=== PATIENT | female | born 1960 | race Caucasian/White ===

== ENCOUNTER 2021-09-20 07:29 | Day surgery (SDC) | payer OTHER ==
[2021-09-17 09:24] LABS: Basophils % 0.7 % (0-1.3); Hematocrit 38.7 % (36.0-45.0); MPV 8.2 fL (7.6-11.3); RBC Red Blood Cell Count 4.43 M/uL (3.86-4.86)
--- NOTE | 2021-09-17 09:35 | RAD REPORT ---
EXAM DESCRIPTION: RAD - Chest Pa And Lat (2 Views) - 09/17/2021 9:10 am CLINICAL HISTORY: Pre Op heart Cath COMPARISON: None TECHNIQUE: Frontal and lateral views of the chest were obtained. FINDINGS: The lungs are clear of a suspicious mass or consolidation. Punctate nodular focus seen in the mid left lung field lower right lung field. These are probably vessels seen on and. Repeat chest film in 6 months could be performed to re-evaluate these small foci. No failure or volume overload. Heart size is normal and central vasculature is within normal limits. No pleural effusion or pneumo thorax seen. No acute bony finding noted. Diaphragm is flattened. Increased retrosternal space evid ent. IMPRESSION: COPD findings are present with no acute cardiopulmonary process. Two punctate nodular foci, 4 mm or less in size, in the lung orta are probably vessels seen on and rather than true lung nodules. Repeat two-view chest imaging in 6 months could be performed to monitor these findings.
[2021-09-17 09:39] LABS: Potassium 4.2 mmol/L (3.5-5.1)
[2021-09-17 09:40] LABS: Protime INR 0.94
[~2021-09-20 07:29] MED LIST: HEPA 1000U/500MLS 0 UNIT/0 ML BAG IV ONE; HEPA 1000U/500MLS 1,000 UNIT/500 ML BAG IV ONE; LIDOCAINE 1% 20 ML MDV ONE
[2021-09-20] MEDS ORDERED: NA CHLORIDE 0.9% 500 ML ONE (08:03)
[2021-09-20] MEDS ORDERED: FENTANYL CITR 100 MCG/2 ML ONE (08:43)
[2021-09-20] MEDS ORDERED: MIDAZOLAM HCL 2 MG/2 ML INJ ONE ×3 (08:43→09:06)
[2021-09-20] MEDS ORDERED: ATROPINE SULF 1 MG/10 ML SYR IV ONE (08:44)
[2021-09-20] MEDS ORDERED: NITROGLYCERIN 100 MCG/ML SYR (for cath lab use only) IV ONE (08:44)
[2021-09-20] MEDS ORDERED: NA CHLORIDE 0.9% 0 ML ONE (08:44)
[2021-09-20] MEDS ORDERED: NITROGLYCERIN/D5W 25 MG/250 ML BTL IV ONE (08:44)
[2021-09-20] MEDS ORDERED: ONDANSETRON 4 MG/2 ML VIAL ONE (08:54)
[2021-09-20] MEDS ORDERED: FLUMAZENIL 0.1 MG/ML (5 mL VIAL) IV ONE (09:06)
--- NOTE | 2021-09-20 09:16 | OP ---
Surgeon: Hussein Kaplan MD Bore Mill Operator: Ms. Brynn Lawler. Procedure Performed: Admitted as an outpatient today on 09/20/2021 to the laborer operator as an outpatient. She underwent left heart catheterization and selective coronary arteriogram. Indication: Unstable angina. Procedure In Detail: Ms. Oseguera is 60, brought to the laborer operator today as an outpatient, prepped and draped in routine sterile fashion. Given Versed 4 mg and fentanyl for sedation. A 6-Romanian sheath introduced in the right common femoral artery successfully using the Seldinger technique. Angiograph y there was normal. Angio-Seal was used to close the case. Eveline catheter left and right were use d to cannulate the left main and right main respectively. She was found to have no perfectly normal coronaries. The left main was normal. Circumflex was normal. RCA was normal. She was codominant. Her LAD was normal without any plaquing. There were no complications. Blood Loss: 5 mL. Postoperative Diagnosis: Chest pain, normal coronaries. Anesthesia: Total conscious sedation was 30 minutes. Plan: Plan is for medical therapy. The patient will be in the hospital for 2 hours of bedrest after which she will go home and I will see her in the office in the next 2 weeks. INNA/LUIS Voice ID: [id number] Report ID: [id number]
[2021-09-20 14:06] VITALS: BP 115/75; TEMP 97.9; O2SAT 99
== END 2021-09-20 11:22 | disposition home or self-care (01) ==
LOC: CCL 07:29
DX: R07.9 Chest pain, unspecified (principal); I10 Essential (primary) hypertension; E78.5 Hyperlipidemia, unspecified; Z88.6 Allergy status to analgesic agent; Z88.8 Allergy status to other drugs, medicaments and biological substances; Z82.49 Family history of ischemic heart disease and other diseases of the circulatory system
CPT/HCPCS: 93005; 85025; 80048; 36415; 85610; 85730; 71046; 93454; C1893; C1760; J2250 ×2; J7040; J1644; J0583; J2405; J3010

== ENCOUNTER 2025-02-02 17:45 | Emergency (ER) | payer OTHER ==
[2025-02-02] MEDS ORDERED: LABETALOL 20 MG/4ML SYRINGE IV ONE (18:43)
--- NOTE | 2025-02-02 19:07 | RAD REPORT ---
Procedure: Chest Single View HISTORY: Chest pain COMPARISON: 2020 FINDINGS: The lungs appear clear of acute infiltrate. No significant pleural effusion noted. The heart is normal size. IMPRESSION: No acute abnormality is displayed.
[2025-02-02 19:21] LABS: Absolute Basophils 0.1 K/uL (0-0.5); Absolute Lymphocytes (CBC) 1.5 K/uL (0.7-4.9); Absolute Monocytes 0.5 K/uL (0.1-1.3); Absolute Neutrophil 6.1 K/uL (1.8-8.0); Basophils % 0.6 % (0-1.3); Eosinophils % 0.5 % (0-4.4); Hematocrit 40.5 % (36.0-45.0); Hemoglobin 13.8 g/dL (12.0-15.0); Lymphocytes % 18.4 % (15.3-44.8); MCH 30.1 pg (27.0-35.0); MCHC 34.1 g/dL (32.0-36.0); MCV 88.2 fL (80-100); MPV 8.7 fL (7.6-11.3); Monocytes % 6.5 % (3.3-12.3); Nucleated Red Blood Cells % 0.1 % (0-0); Platelets 319 thou/uL (152-406); RBC Red Blood Cell Count 4.59 M/uL (3.86-4.86); Red Cell Distribution Width 12.4 % (12.1-15.2)
[2025-02-02 19:31] LABS: PT Prothrombin Time 11.7 SECONDS (10-13.0); Protime INR 1.03
[2025-02-02 19:39] LABS: ALT/SGPT 19 U/L (13-56); AST/SGOT 16 U/L (15-37); Albumin 3.9 g/dL (3.4-5.0); Alkaline Phosphatase 34 U/L (45-117); Anion Gap 8.8 mEq/L (5.0-15.0); BUN Blood Urea Nitrogen 11 mg/dL (7-18); Bicarbonate 27 mEq/L (21-32); Bilirubin Total 0.3 mg/dL (0.2-1.0); Globulin 3.8 g/dL (2.3-3.5); Glomerular Filtration Rate 82 ml/min (=/>90); Glucose Level 107 mg/dL (74-106); Lipase 51 U/L (13-75); Magnesium 2.4 mg/dL (1.6-2.4); NT PRO-BNP 96 pg/mL (<125); Potassium 3.8 mEq/L (3.5-5.1); Protein, Total 7.7 g/dL (6.4-8.2); Sodium Level 138 mEq/L (136-145)
[2025-02-02 19:40] LABS: Bilirubin Direct < 0.2 mg/dL (0-0.2); Bilirubin Indirect, Calculated 0.1 mg/dL (0.2-0.8); Troponin High Sensitivity < 3.0 pg/mL (<58.9)
--- NOTE | 2025-02-02 20:15 | RAD REPORT ---
EXAM: CTA of the chest, abdomen and pelvis HISTORY: Chest and abdominal pain. Back pain COMPARISON: 2023 TECHNIQUE: Multiple contiguous axial images were obtained a CTA of the chest and abdomen with contras t per aortic dissection protocol. Sagittal and coronal 3-D MIP reformats were performed. 100 cc Isovue-370 administered intravenously.Automated exposure control, adjustment of the mA and kV accordi ng to the patient size, and iterative reconstruction. Unless otherwise specified, incidental findings do not require dedicated imaging follow-up. FINDINGS: An aortic dissection not seen. No aortic aneurysm. No significant plaque. Celiac, SMA and HERNANDEZ do not demonstrate a significant abnormality. Renal arteries do not demonstrate a significant abnormality. Lungs are clear Liver, spleen, pancreas, adrenals, kidneys and bladder do not demonstrate a significant abnormality No evidence of diverticulitis. Hysterectomy. No adnexal mass. Small right inguinal hernia IMPRESSION: No evidence of an aortic dissection
--- NOTE | 2025-02-02 20:28 | ER ---
Nurse's Notes [facility] Name: Ana Maria Oseguera Age: 64 yrs Sex: Female : 1960 Arrival Date: 02/02/2025 Time: 17:45 Bed 15 Private MD: Diagnosis: Labile hypertension;Chest pain, unspecified Presentation: 02/02 17:56 Chief complaint: Patient states: UPPER LEFT ABD PAIN THAT RADIATES TO BACK. STATES HAS db HX OF LABILE HYPERTENSION. STATES HX OF CARDIAC CATH. STATES DOES NOT TAKE DAILY HTN MEDICATIONS. Coronavirus screen: Client denies travel out of the [place] in the last 14 days. At this time, the client does not indicate any symptoms associated with coronavirus-19. Ebola Screen: Patient negative for fever greater than or equal to 101.5 degrees Fahrenheit, and additional compatible Ebola Virus Disease symptoms Patient denies exposure to infectious person. Patient denies travel to an Ebola-affected area in the 21 days before illness onset. No symptoms or risks identified at this time. Initial Sepsis Screen: Does the patient meet any 2 criteria? No. Patient's initial sepsis screen is negative. Does the patient have a suspected source of infection? No. Patient's initial sepsis screen is negative. Risk Assessment: Do you want to hurt yourself or someone else? Patient reports no desire to harm self or others. Onset of symptoms was February 02, 2025. 17:56 Method Of Arrival: Ambulatory db 17:56 Acuity: VERA 2 db Triage Assessment: 17:58 General: Appears in no apparent distress. comfortable, Behavior is calm, cooperative. db Pain: Complains of pain in abdomen Pain radiates to back. Neuro: Level of Consciousness is awake, alert, obeys commands, Oriented to person, place, time, situation. Respiratory: Airway is patent Respiratory effort is even, unlabored, Respiratory pattern is regular, symmetrical. GI: Abdomen is flat, non-distended, Reports upper abdominal pain, nausea. Historical: - Allergies: 17:58 Morphine; db 17:58 Codeine; db 17:58 [id number]-GCD-IoR Reductase Inhibitors; db 17:58 Bactrim; db - PMHx: 17:58 LABILE HYPERTENSION; db - PSHx: 17:58 CARDAC CATH; db - Immunization history:: Adult Immunizations unknown. - Infectious Disease History:: Denies. - Social history:: Smoking status: Patient denies any tobacco usage or history of. Screenin:50 [facility] ED Fall Risk Assessment (Adult) History of falling in the last 3 months, kj2 including since admission No falls in past 3 months (0 pts) Confusion or Disorientation No (0 pts) Intoxicated or Sedated No (0 pts) Impaired Gait No (0 pts) Mobility Assist Device Used No (0 pt) Altered Elimination No (0 pt) Score/Fall Risk Level 0 - 2 = Low Risk Maintained a safe environment, Hourly rounding (assess needs \T\ fall precautionary measures) done. Abuse screen: Denies threats or abuse. Denies injuries from another. Nutritional screening: No deficits noted. Tuberculosis screening: No symptoms or risk factors identified. Assessment: 18:50 General: Appears in no apparent distress. Behavior is calm, cooperative. Pain: kj2 Complains of pain in abdomen and back Pain currently is 5 out of 10 on a pain scale. Neuro: Level of Consciousness is awake, alert, obeys commands, Oriented to person, place, time, situation. Cardiovascular: Patient's skin is warm and dry. Respiratory: Airway is patent. GI: Bowel sounds present X 4 quads. Abdomen is tender to palpation X 4 quads. : No signs and/or symptoms were reported regarding the genitourinary system. 19:57 Reassessment: Patient appears in no apparent distress at this time. Patient and/or kj2 family updated on plan of care and expected duration. Pain level reassessed. Patient is alert, oriented x 3, equal unlabored respirations, skin warm/dry/pink. 20:51 Reassessment: Patient appears in no apparent distress at this time. Patient and/or kj2 family updated on plan of care and expected duration. Pain level reassessed. Patient is alert, oriented x 3, equal unlabored respirations, skin warm/dry/pink. Vital Signs: 17:56 BP 167 / 113 RA; Pulse 118; Resp 18; Temp 98.1; Pulse Ox 100% ; Weight 48.53 kg; Height db 5 ft. 3 in. ; Pain 8/10; 17:56 BP 149 / 111 LA; db 18:50 BP 160 / 110; Pulse 105; Resp 20; Pulse Ox 100% on R/A; kj2 19:15 BP 134 / 96; Pulse 86; Resp 18; Pulse Ox 100% ; kj2 19:56 BP 131 / 90; Pulse 79; Resp 18; Pulse Ox 100% ; kj2 20:51 BP 138 / 88; Pulse 78; Resp 20; Temp 98; Pulse Ox 100% on R/A; kj2 17:56 Body Mass Index 18.95 (48.53 kg, 160.02 cm) db 17:56 Pain Scale: Adult db ED Course: 17:56 Patient arrived in ED. db 17:58 Triage completed. db 17:58 Arm band placed on right wrist. db 18:11 Yamila Chavez PA-C is PHCP. sb4 18:11 Rishi Sandra MD is Attending Physician. sb4 18:36 Love Stahl RN is Primary Nurse. kj2 18:45 Inserted saline lock: 20 gauge in right antecubital area, using aseptic technique. kj2 Blood collected. Flushed with 10 mL NS. 19:00 Patient has correct armband on for positive identification. Bed in low position. Call kj2 light in reach. Provided Education on: call light. 19:00 No provider procedures requiring assistance completed. kj2 19:01 XRAY Chest (1 view) In Process Unspecified. EDMS 19:17 EKG done, by engineering lab technician. af3 20:04 CT Aorta for Dissection In Process Unspecified. EDMS 20:33 IV discontinued, intact, bleeding controlled, No redness/swelling at site. Pressure kj2 dressing applied. Administered Medications: 18:32 CANCELLED (Physician Discretion): aspirinchewable tablet 324 mg PO once; 81 mg tablets sb4 x 4 19:06 Drug: Labetalol IV 5 mg IV at calculated rate once Route: IV; Rate: calculated rate; kj2 Site: right antecubital; 20:34 Follow up: Response: No adverse reaction; Blood pressure is lowered kj2 Medication: 20:32 VIS not applicable for this client. kj2 Outcome: 20:28 Discharge ordered by . sb4 20:33 Discharged to home ambulatory, kj2 20:33 Condition: stable 20:33 Discharge instructions given to patient, Instructed on discharge instructions, follow up and referral plans. Demonstrated understanding of instructions, follow-up care, 20:57 Patient left the ED. kj2 Signatures: Dispatcher [employer] EDMS Daya Escamilla RN RN Yamila Garcia PA-C PADelgado sb4 Love Stahl RN RN kj2 Felecia Gardner3 Corrections: (The following items were deleted from the chart) 18:01 17:56 BP 167 / 113; Pulse 118bpm; Resp 18bpm; Pulse Ox 100%; Temp 98.1F; 48.53 kg; db Height 5 ft. 3 in.; BMI: 18.9; Pain 8/10, Adult; db
--- NOTE | 2025-02-02 20:29 | EDPHYS ---
Physician Documentation [facility] Name: Ana Maria Oseguera Age: 64 yrs Sex: Female : 1960 Arrival Date: 02/02/2025 Time: 17:45 Bed 15 Private MD: ED Physician Rishi Sandra HPI: 02/02 18:53 This 64 yrs old Female presents to ER via Ambulatory with complaints of Abdominal Pain. sb4 18:53 Patient reports left upper quadrant abdominal pain/chest pain that radiates through her sb4 back. She states that it began. Does report a history of labile hypertension and takes clonidine as needed. Does not take any daily antihypertensives. Denies any cardiac history, states she had a negative cardiac cath 3 years ago. Historical: - Allergies: 17:58 Morphine; db 17:58 Codeine; db 17:58 Ghwfpng-[id number]-UqN Reductase Inhibitors; db 17:58 Bactrim; db - PMHx: 17:58 LABILE HYPERTENSION; db - PSHx: 17:58 CARDAC CATH; db - Immunization history:: Adult Immunizations unknown. - Infectious Disease History:: Denies. - Social history:: Smoking status: Patient denies any tobacco usage or history of. ROS: 18:53 Constitutional: Negative for fever, chills, and weight loss, sb4 18:53 Cardiovascular: Positive for chest pain, 18:53 Abdomen/GI: Positive for abdominal pain, 18:53 All other systems are negative, Exam: 18:53 Constitutional: This is a well developed, well nourished patient who is awake, alert, sb4 and in no acute distress. Head/Face: Normocephalic, atraumatic. Eyes: Extra-ocular motions intact. Periorbital areas with no swelling, redness, or edema. ENT: Mucous membranes moist. Cardiovascular: Regular rate and rhythm with a normal S1 and S2. Respiratory: No increased work of breathing, no retractions or nasal flaring. Abdomen/GI: Soft, non-tender, no distension. Skin: Warm, dry with normal turgor. Normal color with no rashes, no lesions, and no evidence of cellulitis. MS/ Extremity: Pulses equal, no cyanosis. Neurovascular intact. Full, normal range of motion. Vital Signs: 17:56 BP 167 / 113 RA; Pulse 118; Resp 18; Temp 98.1; Pulse Ox 100% ; Weight 48.53 kg; Height db 5 ft. 3 in. ; Pain 8/10; 17:56 BP 149 / 111 LA; db 18:50 BP 160 / 110; Pulse 105; Resp 20; Pulse Ox 100% on R/A; kj2 19:15 BP 134 / 96; Pulse 86; Resp 18; Pulse Ox 100% ; kj2 19:56 BP 131 / 90; Pulse 79; Resp 18; Pulse Ox 100% ; kj2 20:51 BP 138 / 88; Pulse 78; Resp 20; Temp 98; Pulse Ox 100% on R/A; kj2 17:56 Body Mass Index 18.95 (48.53 kg, 160.02 cm) db 17:56 Pain Scale: Adult db MDM: 18:11 Medical Screening Exam initiated sb4 20:27 Data reviewed: vital signs, nurses notes, lab test result(s), EKG, radiologic studies, sb4 and as a result, I will discharge patient. Historians other than the Patient: Spouse/Significant Other: . Counseling: I had a detailed discussion with the patient and/or guardian regarding the historical points, exam findings, and any diagnostic results supporting the discharge/admit diagnosis, the presence of at least one elevated blood pressure reading (>120/80) during this emergency department visit, lab results, radiology results, the need for outpatient follow up, for definitive care, to return to the emergency department if symptoms worsen or persist or if there are any questions or concerns that arise at home. 02/02 18:12 Order name: Basic Metabolic Panel; Complete Time: 19:40 sb4 02/02 18:12 Order name: CBC with Diff; Complete Time: 19:30 sb4 02/02 18:12 Order name: LFT's; Complete Time: 19:40 sb4 02/02 18:12 Order name: Magnesium; Complete Time: 19:40 sb4 02/02 18:12 Order name: NT PRO-BNP; Complete Time: 19:40 sb4 02/02 18:12 Order name: PT-INR; Complete Time: 19:31 sb4 02/02 18:12 Order name: Troponin HS; Complete Time: 19:40 sb4 02/02 18:12 Order name: Lipase; Complete Time: 19:40 sb4 02/02 18:12 Order name: XRAY Chest (1 view); Complete Time: 19:08 sb4 02/02 19:41 Order name: CT Aorta for Dissection; Complete Time: 20:19 sb4 02/02 18:02 Order name: EKG; Complete Time: 18:02 db 02/02 18:12 Order name: EKG; Complete Time: 18:13 sb4 02/02 18:02 Order name: EKG - Nurse/Tech; Complete Time: 18:14 db 02/02 18:12 Order name: Cardiac monitoring; Complete Time: 19:17 sb4 02/02 18:12 Order name: EKG - Nurse/Tech: repeat; Complete Time: 19:17 sb4 02/02 18:12 Order name: IV Saline Lock; Complete Time: 19:09 sb4 02/02 18:12 Order name: Labs collected and sent; Complete Time: 19:09 sb4 02/02 18:12 Order name: O2 Per Protocol; Complete Time: 19:17 sb4 02/02 18:12 Order name: O2 Sat Monitoring; Complete Time: 19:17 sb4 EC:32 Rate is 78 beats/min. Rhythm is regular, Normal Sinus Rhythm. AL interval is normal at sb4 140 msec. QRS interval is normal at 74 msec. QT interval is normal at 378 msec. No Q waves. T waves are Normal. No ST changes noted. Clinical impression: Normal ECG. Interpreted by me. Reviewed by me. Administered Medications: 18:32 CANCELLED (Physician Discretion): aspirinchewable tablet 324 mg PO once; 81 mg tablets sb4 x 4 19:06 Drug: Labetalol IV 5 mg IV at calculated rate once Route: IV; Rate: calculated rate; kj2 Site: right antecubital; 20:34 Follow up: Response: No adverse reaction; Blood pressure is lowered kj2 Disposition Summary: 02/02/25 20:28 Discharge Ordered Notes: Location: Home sb4 Problem: new sb4 Symptoms: have improved sb4 Condition: Stable sb4 Diagnosis - Labile hypertension sb4 - Chest pain, unspecified sb4 Followup: sb4 - With: Emergency Department - When: As needed - Reason: Trouble breathing, Worsening of condition Discharge Instructions: - Discharge Summary Sheet sb4 - Hypertension, Adult sb4 - Nonspecific Chest Pain, Adult, [id number] sb4 Forms: - Patient Portal Instructions sb4 - Leadership Thank You Letter sb4 Prescriptions: - clonidine HCl 0.1 mg Oral tablet - take 1 tablet ORAL route every 1 to 2 hours as needed for hypertensive sb4 emergency; do not exceed 8 doses in a 24 hour period; 15 tablet; Refills: 0, Product Selection Permitted Signatures: Dispatcher [employer] Daya Tipton RN RN db Yamila Chavez PADelgado PADelgado sb4 Love Stahl RN RN kj2 Corrections: (The following items were deleted from the chart) 18:32 18:12 Aspirin PO Chewable Tablet 324 mg PO once; 81 mg tablets x 4 ordered. sb4 sb4
[2025-02-02 21:25] VITALS: O2SAT 100
[2025-02-02 21:29] VITALS: BP 138/88; TEMP 98
--- NOTE | 2025-02-04 11:04 | EKG ---
Test Date: 2025-02-02 Test Time: 19:15:52 Credit Support Specialist: AF MEASUREMENT RESULTS: Intervals: Rate: 78 AK: 140 QRSD: 74 QT: 378 QTc: 430 [place]: P: 80 AK: 140 QRS: 82 T: 69 INTERPRETIVE STATEMENTS: Normal sinus rhythm Possible Anterior infarct, age undetermined Abnormal ECG Compared to ECG 02/02/2025 18:08:43 Prolonged QT interval no longer present Myocardial infarct finding still present Electronically Signed On 02-04-25 10:59:07 CDT by Bk Adler
--- NOTE | 2025-02-04 11:04 | EKG ---
Test Date: 2025-02-02 Test Time: 18:08:43 Clinical Exercise Specialist: SHAAN MEASUREMENT RESULTS: Intervals: Rate: 100 OK: 112 QRSD: 74 QT: 524 QTc: 675 [place]: P: 86 OK: 112 QRS: 89 T: 121 INTERPRETIVE STATEMENTS: Normal sinus rhythm Anterior infarct, age undetermined Prolonged QT Abnormal ECG Compared to ECG 09/17/2021 07:54:11 Myocardial infarct finding now present Prolonged QT interval now present Atrial abnormality no longer present ST (T wave) deviation no longer present Electronically Signed On 02-04-25 10:59:12 CDT by Bk Adler
== END 2025-02-02 20:57 | disposition home or self-care (01) ==
LOC: ER 17:45
DX: I10 Essential (primary) hypertension (principal)
CPT/HCPCS: 93005 ×2; 85025; 80048; 36415; 83735; 85610; 80076; 84484; 83690; 83880; 71275; 74175; 71045; 96374; 99284; Q9967

== ENCOUNTER 2025-02-24 08:26 | Day surgery (SDC) | payer OTHER ==
[2025-02-24] MEDS ORDERED: dexAMETHasone 10 MG/ML VIAL ONE (08:36)
[2025-02-24] MEDS ORDERED: ONDANSETRON 4 MG/2 ML VIAL ONE (08:36)
[2025-02-24] MEDS ORDERED: FENTANYL CITR 100 MCG/2 ML ONE (08:36)
[2025-02-24] MEDS ORDERED: propofoL 200 MG/20 ML VIAL IV ONE (08:36)
[2025-02-24] MEDS ORDERED: KETOROLAC 30 MG/ML INJ ONE (08:36)
[2025-02-24] MEDS ORDERED: MIDAZOLAM HCL 2 MG/2 ML INJ ONE (08:36)
[2025-02-24] MEDS ORDERED: LIDOCAINE 2% MPF 5 ML VIAL ONE (08:36)
[2025-02-24] MEDS ORDERED: ROCURONIUM 50 MG/5 ML VIAL IV ONE (08:37)
[2025-02-24] MEDS: Ringers Lactate 1,000 ML IV ONE (09:00)
[2025-02-24] MEDS ORDERED: SUCCINYLCHOLINE 20 MG/ML (10 ML) IV ONE (09:21)
[2025-02-24] MEDS ORDERED: GLYCOPYRROLATE 0.2 MG/ML SYR ONE (09:40)
[2025-02-24] MEDS ORDERED: DIPHENHYDRAMINE 50 MG/ML VIAL ONE (09:40)
[2025-02-24] MEDS: CEFAZOLIN SODIUM 1 GM/VIAL ONE (09:45)
[2025-02-24] MEDS ORDERED: NS 0.9% VIAL 10 ML ONE (10:04)
[2025-02-24] MEDS ORDERED: Mastisol Adhesive Liq ONE (10:32)
--- NOTE | 2025-02-24 10:39 | P.BOP ---
Preoperative diagnosis: tender right inguinal hernia Postoperative diagnosis: same Primary procedure: Open repair of tender right inguinal hernia with mesh Estimated blood loss: <10cc Specimen: mass Findings: as above Anesthesia: General Complications: None Drain(s): Other (mesh plug) Transferred to: Recovery Room Condition: Good
[2025-02-24 13:30] VITALS: BP 123/85; TEMP 97.7; O2SAT 99
== END 2025-02-24 13:00 | disposition home or self-care (01) ==
LOC: OR 08:26
PROVIDERS: ATTEND Surgery
PROC: 0WUF0JZ Supplement Abdominal Wall with Synthetic Substitute, Open Approach (ICD-10-PCS; principal; 2025-02-24 09:45)
DX: K40.90 Unilateral inguinal hernia, without obstruction or gangrene, not specified as recurrent (principal); Z88.2 Allergy status to sulfonamides
CPT/HCPCS: 49505; 88302; C1781; A4216; J2704; J1200; J2003; J2250; J3010; J1100; J2405; J7120; J0690